=== PATIENT | female | born 1970 | race Caucasian/White ===

== ENCOUNTER 2017-06-14 22:43 | Emergency (ER) | payer OTHER ==
[~2017-06-14] VITALS: Ht 167.6 cm; Wt 84.0 kg
[~2017-06-14 22:43] MED LIST: CYCL-319 PO; IBUP800T25 PO
[2017-06-14 22:51] VITALS: Ht 167.6 cm; Wt 84.0 kg
--- NOTE | 2017-06-15 00:15 | ERD ---
ER Documentation Chief Complaint Chief Complaint bib self, cc: pain x 3 months, blood cloth in both upper legs, pain worse HPI Patient is a 46-year-old female who presents with gradual onset, constant, progressive bilateral diffuse leg pain for 3 months. She was diagnosed with bilateral DVTs and was started on Eliquis 2 months ago. She is being followed by her doctor, Dr. Roberson, who she last saw 1 month ago. She is taking Tylenol for pain. She is scheduled to see a vascular specialist in 3 days. She states that for the last 2 days the pain is been more severe and is now intolerable. She denies fever, vomiting, chest pain, shortness of breath. She reports being compliant with her medication. ROS All systems reviewed and are negative except as per history of present illness. Medications Home Meds Active Scripts Tramadol HCl (Tramadol HCl) 50 Mg Tablet, 50 MG PO Q6 Y for PAIN, #20 TAB Prov:WILMAN MIRANDA MD 06/15/17 Cyclobenzaprine Hcl* (Cyclobenzaprine Hcl*) 10 Mg Tablet, 10 MG PO TID, #15 TAB Prov:DIO LOVE NP 03/15/16 Ibuprofen* (Motrin*) 800 Mg Tab, 800 MG PO Q8 Y for PAIN AND OR ELEVATED TEMP, # 30 TAB Prov:DIO LOVE NP 03/15/16 Allergies Allergies: Coded Allergies: No Known Allergy (Unverified , 03/15/16) PMhx/Soc Past medical history: DVT Past surgical history: , hysterectomy, cholecystectomy Social history: Denies tobacco or alcohol History of Surgery: Yes (CHOLECYTECTOMY, HYSTERECTOMY, x4) Anesthesia Reaction: No Hx Neurological Disorder: No Hx Respiratory Disorders: No Hx Cardiac Disorders: No Hx Psychiatric Problems: No Hx Miscellaneous Medical Probl: No Hx Alcohol Use: No Hx Substance Use: No Hx Tobacco Use: No FmHx Family History: No coronary disease, No diabetes Physical Exam Vitals Vital Signs Date Time Temp Pulse Resp B/P Pulse Ox O2 Delivery O2 Flow Rate FiO2 06/15/17 03:51 98.3 75 16 114/71 99 Room Air 06/14/17 22:51 98.6 75 18 141/81 100 Physical Exam Const: Alert, in mild distress Head: Atraumatic Eyes: Normal Conjunctiva, No pallor, no icterus ENT: Normal External Ears, Nose and Mouth. Mucous membranes moist Neck: Full range of motion..~ No meningismus. Resp: Clear to auscultation bilaterally Cardio: Regular rate and rhythm, no murmurs Abd: Soft, non tender, non distended. Normal bowel sounds Skin: No petechiae or rashes Back: No midline or flank tenderness Ext: No cyanosis, Trace nonpitting edema bilateral legs. 2+ DP pulses bilaterally. Normal color and capillary refill. No erythema or warmth. Neur: Awake and alert, Cranial nerves II through XII intact bilaterally, strength and sensation full in 4 extremities. Psych: Normal Mood and Affect Results 24 hrs Laboratory Tests Test 06/15/17 03:27 Bedside Glucose 106mg/dL Current Medications Medications (Trade) Dose Ordered Sig/Nazanin Route PRN Reason Start Time Stop Time Status Last Admin Dose Admin Tramadol HCl (Ultram) 50 mg ONCE ONCE PO 06/15/17 00:30 06/15/17 00:31 DC 06/15/17 00:21 Procedures/MDM EKG read by me: Time 2346, rate 63 Rhythm: Normal sinus [place]: Normal Intervals: Normal ST-T waves: no ischemic changes Ectopy: No Q-waves: No Impression: No evidence of ischemia or arrhythmia MDM: Patient is a 46-year-old female with recent diagnosis of DVT to bilateral legs who is on Eliquis and reports having ongoing and progressive bilateral leg pain has been present since her diagnosis 3 months ago. On exam there are is no evidence of arterial insufficiency, cellulitis, trauma, and compartments are soft. Bilateral ultrasounds do not demonstrate residual clot. The patient has no symptoms to suggest embolization of prior clot. Because of the patient's leg pain is not clear. A fingerstick glucose does not show evidence of diabetes that could be causing neuropathy. The patient responded somewhat to tramadol. She has a follow-up appointment with a vascular surgeon in 3 days. I will prescribe her a short course of tramadol for pain control, and have advised her to follow-up further with her PMD or vascular surgeon. Her ultrasound did show a small cystic structure that was not clearly apparent on physical exam, and that can be further worked up as an outpatient. This did not correlate with the patient's location of pain. Departure Diagnosis: Primary Impression: Bilateral leg pain Condition: WILMAN Whitley MD Jun 15, 2017 00:15
[2017-06-15] MEDS ORDERED: traMADol 50 MG TAB PO ONE (00:30)
--- NOTE | 2017-06-15 01:25 | RADRPT ---
PROCEDURE: ULTRASOUND BILATERAL LOWER EXTREMITY VENOUS CLINICAL INDICATION: 46-year-old female with lower extremity pain and swelling. TECHNIQUE: Multiple sonographic images of the bilateral lower extremity deep venous system was obt ained utilizing grayscale, color-flow, compressive sonography and doppler imaging with augmentation. The images were reviewed on a PACS workstation. COMPARISON: None. FINDINGS: There is normal compressibility and flow within the common femoral, deep femoral, superficial femora l, popliteal, posterior tibial and peroneal veins. There is a mid right calf cystic focus measuring 3.0 x 1.3 x 0.5 cm. IMPRESSION: 1. No sonographic evidence for deep venous thrombosis. 2. Mid right calf soft tissue cystic focus. Clinical correlation is necessary. .Rivas Strickland MD, Date Time Electronically viewed and signed by .Rivas Strickland MD, on 06/15/2017 01:25 .M/
[2017-06-15] MEDS ORDERED: TRAM50TA2 PO (03:29)
[2017-06-15 03:51] VITALS: BP 114/71; PULSE 75; RESP 16; TEMP 98.3
== END 2017-06-15 03:53 | disposition home or self-care (01) ==
LOC: E/R 22:43
DX: J06.9 Acute upper respiratory infection, unspecified (principal); R40.2142 Coma scale, eyes open, spontaneous, at arrival to emergency department; R40.2362 Coma scale, best motor response, obeys commands, at arrival to emergency department
CPT/HCPCS: 82962; 93005; 93970; Z7502; Z7610; 99282